=== PATIENT | male | born 1975 | race Two or more races ===

== ENCOUNTER 2020-01-23 00:31 | Emergency (ER) | payer OTHER ==
[2020-01-23 00:35] VITALS: BP 185/111
--- OUTSIDE RECORDS SUMMARY | 2020-01-23 00:39 | XMS REPORT | Continuity of Care Document ---
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 Social History Type Date Description Comments Sex Unknown Tobacco Use Start: Unknown Never Smoked Cigarettes Tobacco Use Start: Unknown Never Smoked Cigars Tobacco Use Start: Unknown Never Smoked A Pipe Smokeless Tobacco Never Used Smokeless Tobacco ETOH Use Currently occasionally consumes alcohol Allergies, Adverse Reactions, Alerts Active Allergies Reaction Severity Comments Date Iodine 12/31/2019 Shellfish Vomiting And Swelling 12/31/2019 Medications Active Medications SIG Qnty Indications Ordering Provider Date Amlodipine Besylate Take 1 Tablet By 90tabs I10 Ricki Marx MD 08/22/2018 5mg Mouth Every Day Tablets For Blood Pressure Atorvastatin Calcium Take 1 Tablet By 90tabs Ricki Marx MD 09/02/2014 Mouth Every Night 40mg Tablets AT Bedtime Atenolol take 1 tablet by 90tabs Ricki Marx MD 08/14/2007 25mg Tablets mouth once daily Immunizations Description No Information Available Vital Signs Date Vital Result Comment 12/31/2019 2:42pm Weight 189.00 lb Weight 85.730 kg Height 66 inches 5'6" Height in cm's 167.6 cm BMI (Body Mass Index) 30.5 kg/m2 Results Description No Information Available Procedures Description No Information Available Medical Devices Description No Information Available Encounters Type Date Location Provider Dx Diagnosis Office Visit 12/31/2019 Hero Collins 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 Functional Status Description No Information Available Mental Status Description No Information Available Referrals Description No Information Available
--- NOTE | 2020-01-23 00:45 | ED ---
Laceration/Wound HPI - HPI Summary HPI Summary: Patient complains of laceration to base of second digit of right hand and distal tip fourth digit of right hand from cleaning a knife tonight. Tetanus status unknown. Bleeding controlled. Denies any other injury, pain or symptoms. - History of Current Complaint Stated Complaint: HAND LAC PER PT Hx Obtained From: Patient Mechanism of Injury: Sharp/Blunt Trauma Onset/Duration: Sudden Onset Aggravating: Movement Onset Severity: Mild Current Severity: Mild Pain Intensity: 2 Pain Scale Used: 0-10 Numeric Associated Signs & Symptoms: Negative - Allergy/Home Medications Allergies/Adverse Reactions: Allergies Allergy/AdvReac Type Severity Reaction Status Date / Time shrimp Allergy Swelling Verified 01/23/20 00:35 Home Medications: Home Medications Atenolol [Atenolol-] 25 mg PO DAILY 12/02/14 [History Confirmed 01/23/20] Atorvastatin Calcium 40 mg PO BEDTIME 12/02/14 [History Confirmed 01/23/20] Amlodipine Besylate [Norvasc] 5 mg PO DAILY 01/23/20 [History Confirmed 01/23/20 ] PMH/Surg Hx/FS Hx/Imm Hx Endocrine/Hematology History: Denies: Hx Anticoagulant Therapy Cardiovascular History: Denies: Hx Pacemaker/ICD History: Denies: Hx Dialysis Sensory History: Denies: Hx Eye Prosthesis Opthamlomology History: Denies: Hx Legally Blind EENT History: Denies: Hx Deafness Neurological History: Denies: Hx Dementia Infectious Disease History: No Infectious Disease History: Denies: Traveled Outside the [place] in Last 30 Days - Family History Known Family History: Positive: Non-Contributory - Social History Alcohol Use: Occasionally Hx Substance Use: No Hx Tobacco Use: No Review of Systems Constitutional: Negative Eyes: Negative ENT: Negative Cardiovascular: Negative Respiratory: Negative Gastrointestinal: Negative Genitourinary: Negative Musculoskeletal: Negative Skin: Other Neurological/Mental Status: Negative Psychological: Normal All Other Systems Reviewed And Are Negative: Yes Physical Exam - Summary Physical Exam Summary: Flexion and extension at each individual joint of second and fourth digits of right hand against resistance. PMS intact distally on both digits. 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 No indication for suturing or stabilization of nailbed. Triage Information Reviewed: Yes Vital Signs On Initial Exam: Initial Vitals Temp Pulse Resp BP Pulse Ox 98.5 F 101 18 185/111 98 03/18/20 00:32 01/23/20 00:32 01/23/20 00:32 01/23/20 00:32 01/23/20 00:32 Vital Signs Reviewed: Yes Appearance: Positive: Well-Appearing Skin: Positive: Warm Head/Face: Positive: Normal Head/Face Inspection Eyes: Positive: Normal Neck: Positive: Supple Respiratory/Lung Sounds: Positive: Clear to Auscultation Cardiovascular: Positive: Normal Abdomen Description: Positive: Nontender Musculoskeletal: Positive: Normal Neurological: Positive: Normal Psychiatric: Positive: Normal AVPU Assessment: Alert - [place] Coma Scale Best Eye Response: 4 - Spontaneous Best Motor Response: 6 - Obeys Commands Best Verbal Response: 5 - Oriented Coma Scale Total: 15 Procedures - Sedation Patient Received Moderate/Deep Sedation with Procedure: No - Laceration/Wound Repair 1 Location: upper extremity - volar surface of base of second digit right hand Description: Linear Anesthesia: Digital, 1.0% Length, Depth and Shape: 3.5cm x .5cm Irrigated w/ Saline (ccs): 300 Laceration/Wound Explored: clean Debridement: minimal Number of Sutures: 9 - 4.0 ethilon Layer Closure?: No Sterile Dressing Applied?: No Diagnostics - Vital Signs Vital Signs Temp Pulse Resp BP Pulse Ox 01/23/20 00:32 98.5 F 101 18 185/111 98 - Laboratory Lab Statement: Any lab studies that have been ordered have been reviewed, and results considered in the medical decision making process. Laceration Repair Course/Dx - Course Course Of Treatment: Patient complains of laceration to base of second digit of right hand and distal tip fourth digit of right hand from cleaning a knife tonight. Tetanus status unknown. Bleeding controlled. Denies any other injury , pain or symptoms. Vital signs within normal limits. Tetanus booster administered. Wound cleaned and sutured. - Clinical Impression Provider Diagnoses: Laceration of finger of right hand Discharge ED - Sign-Out/Discharge Documenting (check all that apply): Patient Departure - Discharge Plan Condition: Stable Disposition: HOME Patient Education Materials: Finger Laceration (ED) Referrals: Ricki Marx MD [Primary Care Provider] - Additional Instructions: Sutures out in 10 days. Later this morning you may wash wound with warm running water and soap. Do not submerge wound underwater. Keep clean and dry and protected when not washing. Return to the ED for any worsening symptoms. - Billing Disposition and Condition Condition: STABLE Disposition: Home
[2020-01-23] MEDS ORDERED: Tetan/Diph/Pertus SYR(Tdap)* 0.5 ML SYR(BOOSTRIX) use SYR contains LATEX IM ONE (01:11)
[2020-01-23] MEDS ORDERED: Bacitracin OINTMENT* 0.5% 0.5 oz TUBE TOPICAL ONE (01:39)
== END 2020-01-23 01:49 | disposition home or self-care (01) ==
LOC: ED 00:31
DX: S61.210A Laceration without foreign body of right index finger without damage to nail, initial encounter (principal); S61.214A Laceration without foreign body of right ring finger without damage to nail, initial encounter; Z23 Encounter for immunization; W26.0XXA Contact with knife, initial encounter; Y92.9 Unspecified place or not applicable; Z79.899 Other long term (current) drug therapy
CPT/HCPCS: 12002; 90471; 90715; 99282; A9270-GY